=== PATIENT | male | born 1955 | race Caucasian/White ===

== ENCOUNTER → 2024-03-19 | Outpatient (CLI) | payer BC, SELFPAY ==
[2024-03-19 10:57] LABS: Alanine Aminotransferase 31 U/L (10-49); Albumin/Globulin Ratio 2.4 (1.2-2.2); Alkaline Phosphatase 56 U/L (46-116); Anion Gap 8 (7-16); Aspartate Amino Transferase 27 U/L (0-34); BUN/Creatinine Ratio 18 Ratio (12-20); Bilirubin,Total 0.9 mg/dL (0.3-1.2); Blood Urea Nitrogen 20 mg/dL (9-23); Calcium 9.8 mg/dL (8.3-10.6); Calcium (Corrected) 9.8 mg/dL (8.5-10.1); Carbon Dioxide 26.3 mMol/L (20.0-31.0); Cardiac Risk Estimate 3.9 RATIO (4.0-6.7); Chloride 103 mMol/L (98-107); Cholesterol 269 mg/dL (132-200); Creatinine (Component) 1.1 mg/dL (0.6-1.3); Globulin 2.1 gm/dL (2.3-3.5); Glucose 109 mg/dL (74-106); HDL Cholesterol 69 mg/dL (40-60); LDL Cholesterol,Calculated 182 mg/dL (0-130); Osmolality,Calculated 277 (275-295); Potassium 4.7 mMol/L (3.4-5.1); Sodium 137 mMol/L (136-145); Total Protein 7.1 gm/dL (5.7-8.2); Triglycerides 90 mg/dL (30-150); eGFR > 60 See Note
== END | disposition home or self-care (01) ==
PROVIDERS: PCP Family Medicine; Referring Provider Family Medicine; Visit Provider Family Medicine
DX: E78.1 Pure hyperglyceridemia (principal); Z13.1 Encounter for screening for diabetes mellitus
CPT/HCPCS: 36415; 80053; 80061

== ENCOUNTER 2024-08-04 14:53 | Emergency (ER) | payer BC, SELFPAY ==
[2024-08-04 15:13] VITALS: BP 137/78; PULSE 84; RESP 18; TEMP 37; O2SAT 97; BMI 27.2
--- NOTE | 2024-08-04 15:28 | XR_ITS ---
Examination: Hand, left 3 views Technique: Hand AP, oblique, lateral 3 views Date and time of exam: August 04, 2024 1531 hrs. Indications: Injury to the hand today with fifth digit pain Findings: Acute displaced small chip fracture off the ungual tuft tip distal phalanx fifth digit No dislocation Impression: Chip fracture off the ungual tuft tip distal phalanx fifth digit
[2024-08-04] MEDS: DIPHTH,PERTUSS(ACELL),TET VAC 0.5 ML SYR- ADULT IMi (16:08)
--- NOTE | 2024-09-19 11:28 | PD.EDUPEX ---
Upper Extremity Injury RME/HPI General Chief Complaint: Extremity Injury, Upper Stated Complaint: SQUASHED L) 5TH DIGIT IN WOOD SPLITTER Time Seen by Provider: 08/04/24 15:06 Arrival date/time: 08/04/24 14:53 RME / HPI RME / HPI narrative: 68-year-old male presents to the ED with complaint of a crush injury to his left fifth finger. Injury occurred just prior to arrival when he was working with a wood splitter. His last tetanus is unknown. Related Data Home Medications ?Medication ?Instructions ?Recorded ?Confirmed amlodipine 10 mg tablet 10 mg PO QDAY 11/28/18 06/22/23 Previous Rx's ?Medication ?Instructions ?Recorded cephalexin 500 mg capsule 500 mg PO BID Tuft fracture #14 08/04/24 caps Allergies Allergy/AdvReac Type Severity Reaction Status Date / Time adhesive tape Allergy blisters Verified 06/22/23 15:06 codeine Allergy Verified 06/22/23 15:06 Review of Systems Review of Systems Systems Reviewed: All systems reviewed, normal except as documented Past Medical History Past Medical History CARDIAC: Positive Hypertension; Negative Congestive Heart Failure RESPIRATORY: Negative Chronic Obstructive Pulmonary Disease (COPD) GENITOURINARY: Negative Renal Disease ENT: Negative Glaucoma ENDOCRINE: Negative Diabetes Mellitus Type 1 or Diabetes Mellitus Type 2 HEMATOLOGIC: Negative Blood Disorders Social History SMOKING STATUS: Current every day smoker ED Exam Narrative Physical exam: Alert and oriented 68-year-old male, no acute distress. Lungs are clear, regular rate and rhythm. Left small finger with crush injury and fingertip avulsion. No functional deficit noted. Course Course Course Narrative: 68-year-old male presents to the ED with complaint of a crush injury to his left fifth finger. Injury occurred just prior to arrival when he was working with a wood splitter. His last tetanus is unknown. Alert and oriented 68-year-old male, no acute distress. Lungs are clear, regular rate and rhythm. Left small finger with crush injury and fingertip avulsion. No functional deficit noted. Wound was cleansed, tetanus was updated. Dressing applied with finger splint. X-rays reveal: Acute displaced small chip fracture off the ungual tuft tip distal phalanx fifth digit. No dislocation. Impression: Chip fracture off the ungual tuft tip distal phalanx fifth digit. Patient was given Keflex 500mg PO x1 and discharged home with an RX for additional Keflex. Quality Measures none Orders Category Date Time Status TDap [Obtain Tdap Consent] X1 Care 08/04/24 15:41 Completed Wound Care [Wound Care] NOW Care 08/04/24 16:34 Completed XR hand comp LT min 3V Stat Exams 08/04/24 15:28 Completed TET,DIP/PERT AC (Adult)-Tdap [Boostrix Adult (Tdap) Med 08/04/24 15:41 Discontinued Vacc] 0.5 ml IMI .ONCE ONE cephALEXin [Keflex] Med 08/04/24 16:35 Discontinued 500 mg PO X1 ONE Vital Signs Vital signs: Vital Signs Temperature 98.6 F 08/04/24 15:13 Pulse Rate 84 08/04/24 15:13 Respiratory Rate 18 08/04/24 15:13 Blood Pressure 137/78 H 08/04/24 15:13 Pulse Oximetry (%) 97 08/04/24 15:13 Oxygen Delivery Method Room Air 08/04/24 15:13 Extremity Injury MDM Narrative MDM Narrative:: 68-year-old male presents to the ED with complaint of a crush injury to his left fifth finger. Injury occurred just prior to arrival when he was working with a wood splitter. His last tetanus is unknown. Alert and oriented 68-year-old male, no acute distress. Lungs are clear, regular rate and rhythm. Left small finger with crush injury and fingertip avulsion. No functional deficit noted. Wound was cleansed, tetanus was updated. Dressing applied with finger splint. X-rays reveal: Acute displaced small chip fracture off the ungual tuft tip distal phalanx fifth digit. No dislocation. Impression: Chip fracture off the ungual tuft tip distal phalanx fifth digit. Patient was given Keflex 500mg PO x1 and discharged home with an RX for additional Keflex. Patient data External records reviewed:: None Clinical information provided by:: patient Social determinants that could affect healthcare access:: none Patient has the following chronic illnesses:: Hypertension How is presenting disease/condition affected by chronic disease/condition?: uneffected by Evaluation data The following diagnostics were reviewed and interpreted by me:: radiology exam(s) Lab and/or radiology exams considered but not ordered:: N/A Interpretation Summary: X-rays reveal: Acute displaced small chip fracture off the ungual tuft tip distal phalanx fifth digit. No dislocation. Impression: Chip fracture off the ungual tuft tip distal phalanx fifth digit. Medications / Prescriptions Medications or Prescriptions considered but not ordered:: N/A Medication administrations:: Medication Administration History Discontinued Medications Cephalexin HCl (Cephalexin 250 Mg Capsule) 500 mg PO X1 ONE Stop: 08/04/24 16:36 Last Admin: 08/04/24 17:09 Dose: Not Given Documented By: ORALIA Non-Admin Reason: Patient Refused Diphtheria/Tetanus/Acell Pertussis (Diphth,Pertuss(Acell),Tet Vac 0.5 Ml Syr- Adult) 0.5 ml IMi .ONCE ONE Stop: 08/04/24 15:42 Last Admin: 08/04/24 16:08 Dose: 0.5 ml Documented By: ORALIA Tdap and cephalexin 500 mg 1 tab p.o. Consultations Consultation(s) initiated? (list below): No Diagnosis Upper Extremity Injury Differential Diagnosis: finger sprain, dislocation of finger and other (Crush Injury, Avulsion, Tuft fracture) Most likely diagnosis given after review of the tests above:: Crush Injury, Avulsion, Tuft fracture Admission Indicated Admission indicated?: not indicated Admission Request Was there a request for admission?: No Disposition Plan Disposition Plan: Discharge Discharge Attestation Discharge Attestation: The patient and all family members were given an opportunity to ask questions and understood the discharge instructions. Discharge instructions specifically effects, indications for sooner follow up or return to the emergency department, and the expected course of current diagnosis. Patient condition: Stable Discharge Plan Plan Patient Disposition: HOME (Self Care) Discharge Disposition comment: Stable and improved Prescriptions/Referrals Prescriptions/Med Rec: New cephalexin 500 mg capsule 500 mg PO BID Qty: 14 0RF No Action amlodipine 10 mg tablet 10 mg PO QDAY Referrals: No Primary/Family,Physician [Primary Care Provider] - In 1 week Problem List Clinical Impression: Avulsion of fingertip, Laceration Patient/Caregiver Discharge Instructions Other Activity Instructions:: Keep the wound clean and dry, do not expose it to excessive amounts of moisture. Dressing change in 48 hours, then daily. Education Materials: ED Fracture, Finger, Open, ED Skin Avulsion Additional Instructions: Follow-up with your primary care physician in 24 to 48 hours. Return to the ED for any new or worsening symptoms. Print Language: Stateless Stand Alone Forms: [email or web address] Info., Patient Portal Info Letter PA/MID LEVEL CLINICIAN Supervising Physician PA/MID LEVEL CLINICIAN Supervising Physician: Dr. Roberts
== END 2024-08-04 17:09 | disposition home or self-care (01) ==
PROVIDERS: Emergency Provider Family Medicine
DX: S61.217A Laceration without foreign body of left little finger without damage to nail, initial encounter (principal); W23.0XXA Caught, crushed, jammed, or pinched between moving objects, initial encounter; Z23 Encounter for immunization
CPT/HCPCS: 73130; 90471; 90715; 99282